=== PATIENT | male | born 1960 | race Caucasian/White ===

== ENCOUNTER → 2023-03-31 06:22 | Day surgery (SDC) | payer OTHER, SELFPAY | LOC: GI 06:22 | PROVIDERS: ATTENDING PHYSICIAN Internal Medicine Gastroenterology; FAMILY PHYSICIAN Internal Medicine | DX: Z12.11 Encounter for screening for malignant neoplasm of colon (principal); K64.8 Other hemorrhoids; C20 Malignant neoplasm of rectum; D12.0 Benign neoplasm of cecum; D12.3 Benign neoplasm of transverse colon; K63.5 Polyp of colon | CPT/HCPCS: 45385; 45380; 88305; 88342 ==

== ENCOUNTER → 2023-07-15 16:43 | Outpatient (REF) | payer OTHER, SELFPAY | LOC: RAD 16:43 | PROVIDERS: ATTENDING PHYSICIAN Internal Medicine; FAMILY PHYSICIAN Internal Medicine | DX: N50.89 Other specified disorders of the male genital organs (principal) | CPT/HCPCS: 76870; 93976 ==

== ENCOUNTER → 2024-03-22 06:48 | Outpatient (REF) | payer BC, SELFPAY | LOC: RAD 06:48 | PROVIDERS: ATTENDING PHYSICIAN Physician Assistant Surgical; FAMILY PHYSICIAN Internal Medicine; OTHER PHYSICIAN Surgery Surgical Oncology | DX: M79.89 Other specified soft tissue disorders (principal) | CPT/HCPCS: 93970 ==

== ENCOUNTER 2024-03-24 13:43 | Outpatient (RCR) | payer BC, SELFPAY | END 2024-03-24 23:59 | disposition home or self-care (01) | LOC: RPT 13:43 | PROVIDERS: ATTENDING PHYSICIAN Surgery Surgical Oncology; FAMILY PHYSICIAN Family Medicine | DX: C20 Malignant neoplasm of rectum (principal); Z73.6 Limitation of activities due to disability; R15.9 Full incontinence of feces; M62.81 Muscle weakness (generalized); G62.9 Polyneuropathy, unspecified; Z98.890 Other specified postprocedural states; Z92.3 Personal history of irradiation; Z92.21 Personal history of antineoplastic chemotherapy | CPT/HCPCS: 97110; 97161; 97530 ==

== ENCOUNTER 2024-04-21 14:49 | Outpatient (RCR) | payer BC, SELFPAY | END 2024-04-21 23:59 | disposition home or self-care (01) | LOC: RPT 14:49 | PROVIDERS: ATTENDING PHYSICIAN Surgery Surgical Oncology; FAMILY PHYSICIAN Family Medicine | DX: C20 Malignant neoplasm of rectum (principal); Z73.6 Limitation of activities due to disability; R15.9 Full incontinence of feces; M62.81 Muscle weakness (generalized); G62.9 Polyneuropathy, unspecified; Z98.890 Other specified postprocedural states; Z92.3 Personal history of irradiation; Z92.21 Personal history of antineoplastic chemotherapy | CPT/HCPCS: 97110; 97112; 97140; 97530 ==

== ENCOUNTER 2024-05-17 16:03 | Outpatient (RCR) | payer BC, SELFPAY | END 2024-05-17 23:59 | disposition home or self-care (01) | LOC: RPT 16:03 | PROVIDERS: ATTENDING PHYSICIAN Surgery Surgical Oncology; FAMILY PHYSICIAN Family Medicine | DX: C20 Malignant neoplasm of rectum (principal); R15.9 Full incontinence of feces; G62.9 Polyneuropathy, unspecified; M62.81 Muscle weakness (generalized); Z98.890 Other specified postprocedural states; Z92.3 Personal history of irradiation; Z73.6 Limitation of activities due to disability; Z92.21 Personal history of antineoplastic chemotherapy | CPT/HCPCS: 97110; 97112; 97140; 97530 ==

== ENCOUNTER → 2024-05-25 14:11 | Outpatient (REF) | payer BC, SELFPAY | LOC: RAD 14:11 | PROVIDERS: ATTENDING PHYSICIAN Internal Medicine | DX: M25.552 Pain in left hip (principal) | CPT/HCPCS: 73502 ==

== ENCOUNTER → 2024-06-08 20:26 | Outpatient (REF) | payer BC, SELFPAY | LOC: MRI 3T 20:26 | PROVIDERS: ATTENDING PHYSICIAN Radiology Radiation Oncology; FAMILY PHYSICIAN Internal Medicine | DX: C20 Malignant neoplasm of rectum (principal) | CPT/HCPCS: 72158; A9575 ==

== ENCOUNTER 2024-06-09 15:12 | Outpatient (RCR) | payer BC, SELFPAY | END 2024-06-09 23:59 | disposition home or self-care (01) | LOC: RPT 15:12 | PROVIDERS: ATTENDING PHYSICIAN Surgery Surgical Oncology; FAMILY PHYSICIAN Family Medicine | DX: C20 Malignant neoplasm of rectum (principal); R15.9 Full incontinence of feces; G62.9 Polyneuropathy, unspecified; Z73.6 Limitation of activities due to disability; M62.81 Muscle weakness (generalized); M25.552 Pain in left hip; M16.0 Bilateral primary osteoarthritis of hip; G62.0 Drug-induced polyneuropathy; R26.89 Other abnormalities of gait and mobility; Z98.890 Other specified postprocedural states; Z92.21 Personal history of antineoplastic chemotherapy; Z92.3 Personal history of irradiation | CPT/HCPCS: 97110; 97112; 97140; 97164 ==

== ENCOUNTER → 2024-06-10 07:26 | Outpatient (REF) | payer BC, SELFPAY | LOC: MRI 3T 07:26 | PROVIDERS: ATTENDING PHYSICIAN Radiology Radiation Oncology; FAMILY PHYSICIAN Internal Medicine | DX: C20 Malignant neoplasm of rectum (principal) | CPT/HCPCS: 72197; A9575 ==

== ENCOUNTER → 2024-06-15 19:01 | Outpatient (REF) | payer BC, SELFPAY | LOC: MRI 3T 19:01 | PROVIDERS: ATTENDING PHYSICIAN Physician Assistant Surgical; FAMILY PHYSICIAN Internal Medicine | DX: R26.0 Ataxic gait (principal); M54.50 Low back pain, unspecified; M54.6 Pain in thoracic spine; M54.14 Radiculopathy, thoracic region; M48.062 Spinal stenosis, lumbar region with neurogenic claudication | CPT/HCPCS: 72157; A9575 ==

== ENCOUNTER 2024-07-22 17:05 | Outpatient (RCR) | payer BC, SELFPAY | END 2024-07-22 23:59 | disposition home or self-care (01) | LOC: RPT 17:05 | PROVIDERS: ATTENDING PHYSICIAN Surgery Surgical Oncology; FAMILY PHYSICIAN Family Medicine | DX: C20 Malignant neoplasm of rectum (principal); R15.9 Full incontinence of feces; G62.9 Polyneuropathy, unspecified; M62.81 Muscle weakness (generalized); M25.552 Pain in left hip; Z73.6 Limitation of activities due to disability; M16.0 Bilateral primary osteoarthritis of hip; R26.89 Other abnormalities of gait and mobility; Z98.890 Other specified postprocedural states; G62.0 Drug-induced polyneuropathy; Z92.3 Personal history of irradiation; Z92.21 Personal history of antineoplastic chemotherapy | CPT/HCPCS: 97110; 97112; 97140 ==

== ENCOUNTER 2024-08-20 08:24 | Outpatient (RCR) | payer BC, SELFPAY | END 2024-08-20 23:59 | disposition home or self-care (01) | LOC: RPT 08:24 | PROVIDERS: ATTENDING PHYSICIAN Surgery Surgical Oncology; FAMILY PHYSICIAN Family Medicine | DX: C20 Malignant neoplasm of rectum (principal); R15.9 Full incontinence of feces; G62.9 Polyneuropathy, unspecified; M62.81 Muscle weakness (generalized); M25.552 Pain in left hip; Z73.6 Limitation of activities due to disability; M16.0 Bilateral primary osteoarthritis of hip; G62.0 Drug-induced polyneuropathy; R26.89 Other abnormalities of gait and mobility; Z98.890 Other specified postprocedural states; Z92.3 Personal history of irradiation; Z92.21 Personal history of antineoplastic chemotherapy | CPT/HCPCS: 97110; 97140; 97530 ==

== ENCOUNTER 2024-09-09 15:26 | Outpatient (RCR) | payer BC, SELFPAY | END 2024-09-09 23:59 | disposition home or self-care (01) | LOC: RPT 15:26 | PROVIDERS: ATTENDING PHYSICIAN Surgery Surgical Oncology; FAMILY PHYSICIAN Family Medicine | DX: C20 Malignant neoplasm of rectum (principal); R15.9 Full incontinence of feces; G62.9 Polyneuropathy, unspecified; M62.81 Muscle weakness (generalized); M25.552 Pain in left hip; Z73.6 Limitation of activities due to disability; M16.0 Bilateral primary osteoarthritis of hip; G62.0 Drug-induced polyneuropathy; R26.89 Other abnormalities of gait and mobility; Z98.890 Other specified postprocedural states; Z92.3 Personal history of irradiation; Z92.21 Personal history of antineoplastic chemotherapy | CPT/HCPCS: 97110; 97112 ==

== ENCOUNTER 2024-10-19 12:03 | Outpatient (RCR) | payer BC, SELFPAY | END 2024-10-19 23:59 | disposition home or self-care (01) | LOC: RPT 12:03 | PROVIDERS: ATTENDING PHYSICIAN Surgery Surgical Oncology; FAMILY PHYSICIAN Family Medicine | DX: C20 Malignant neoplasm of rectum (principal); R15.9 Full incontinence of feces; G62.9 Polyneuropathy, unspecified; M62.81 Muscle weakness (generalized); M25.552 Pain in left hip; Z73.6 Limitation of activities due to disability; M16.0 Bilateral primary osteoarthritis of hip; G62.0 Drug-induced polyneuropathy; R26.89 Other abnormalities of gait and mobility; Z98.890 Other specified postprocedural states; Z92.3 Personal history of irradiation; Z92.21 Personal history of antineoplastic chemotherapy | CPT/HCPCS: 97110; 97112; 97140; 97530 ==

== ENCOUNTER 2024-11-23 12:11 | Outpatient (RCR) | payer BC, SELFPAY | END 2024-11-23 23:59 | disposition home or self-care (01) | LOC: RPT 12:11 | PROVIDERS: ATTENDING PHYSICIAN Surgery Surgical Oncology; FAMILY PHYSICIAN Family Medicine | DX: C20 Malignant neoplasm of rectum (principal); R15.9 Full incontinence of feces; G62.9 Polyneuropathy, unspecified; M62.81 Muscle weakness (generalized); M25.552 Pain in left hip; Z73.6 Limitation of activities due to disability; M16.0 Bilateral primary osteoarthritis of hip; G62.0 Drug-induced polyneuropathy; R26.89 Other abnormalities of gait and mobility; Z98.890 Other specified postprocedural states; Z92.3 Personal history of irradiation; Z92.21 Personal history of antineoplastic chemotherapy | CPT/HCPCS: 97110; 97112; 97140 ==

== ENCOUNTER 2024-12-14 09:24 | Outpatient (RCR) | payer BC, SELFPAY | END 2024-12-14 23:59 | disposition home or self-care (01) | LOC: RPT 09:24 | PROVIDERS: ATTENDING PHYSICIAN Surgery Surgical Oncology; FAMILY PHYSICIAN Family Medicine | DX: C20 Malignant neoplasm of rectum (principal); R15.9 Full incontinence of feces; G62.9 Polyneuropathy, unspecified; M62.81 Muscle weakness (generalized); M25.552 Pain in left hip; Z73.6 Limitation of activities due to disability; M16.0 Bilateral primary osteoarthritis of hip; G62.0 Drug-induced polyneuropathy; R26.89 Other abnormalities of gait and mobility; Z98.890 Other specified postprocedural states; Z92.3 Personal history of irradiation; Z92.21 Personal history of antineoplastic chemotherapy | CPT/HCPCS: 97110; 97112; 97140 ==

== ENCOUNTER 2025-01-18 10:05 | Outpatient (RCR) | payer BC, SELFPAY | END 2025-01-18 23:59 | disposition home or self-care (01) | LOC: RPT 10:05 | PROVIDERS: ATTENDING PHYSICIAN Surgery Surgical Oncology; FAMILY PHYSICIAN Family Medicine | DX: C20 Malignant neoplasm of rectum (principal); R15.9 Full incontinence of feces; G62.9 Polyneuropathy, unspecified; M62.81 Muscle weakness (generalized); M25.552 Pain in left hip; Z73.6 Limitation of activities due to disability; M16.0 Bilateral primary osteoarthritis of hip; G62.0 Drug-induced polyneuropathy; R26.89 Other abnormalities of gait and mobility; Z98.890 Other specified postprocedural states; Z92.3 Personal history of irradiation; Z92.21 Personal history of antineoplastic chemotherapy | CPT/HCPCS: 97014; 97110; 97112; 97140; 97530 ==

== ENCOUNTER 2025-02-15 09:49 | Outpatient (RCR) | payer BC, SELFPAY | END 2025-02-15 23:59 | disposition home or self-care (01) | LOC: RPT 09:49 | PROVIDERS: ATTENDING PHYSICIAN Surgery Surgical Oncology; FAMILY PHYSICIAN Family Medicine | DX: C20 Malignant neoplasm of rectum (principal); R15.9 Full incontinence of feces; G62.9 Polyneuropathy, unspecified; M62.81 Muscle weakness (generalized); M25.552 Pain in left hip; Z73.6 Limitation of activities due to disability; M16.0 Bilateral primary osteoarthritis of hip; G62.0 Drug-induced polyneuropathy; R26.89 Other abnormalities of gait and mobility; Z98.890 Other specified postprocedural states; Z92.3 Personal history of irradiation; Z92.21 Personal history of antineoplastic chemotherapy | CPT/HCPCS: 97110; 97112; 97140; 97530 ==